=== PATIENT | male | born 1980 | race American Indian/Alaskan Native ===

== ENCOUNTER 2018-01-12 22:26 | Emergency (ER) | payer SELFPAY ==
[2018-01-12 22:37] VITALS: BP 134/77
[2018-01-13] MEDS ORDERED: BACTRIM DS PO ONE (05:10)
[2018-01-13] MEDS ORDERED: MOTRIN PO ONE (05:10)
--- NOTE | 2018-01-13 05:12 | Emergency Department Report ---
- General Chief complaint: Wound/Laceration Stated complaint: RASH ON ABD Time Seen by Provider: 01/13/18 05:09 Source: patient Mode of arrival: Ambulatory Limitations: No Limitations - History of Present Illness Initial comments: 37-year-old -Italian male comes in complaining of wound to his lower abdomen. Patient states that he has noticed it about 2 days ago. He reports that the pain is severe. He reports that his increase pain with palpation and movement getting in and out of his truck at work. Patient noticed that he has a little fever and noticed red and now he's noticed that it has started to drain. She denies any fever or chills no nausea no vomiting. He denies any similar abscesses in the past. -: days(s) (2) - Related Data Previous Rx's Medication Instructions Recorded Last Taken Type Ibuprofen [Motrin 800 MG tab] 800 mg PO Q8HR #30 tablet 01/13/18 Unknown Rx Sulfamethoxazole/Trimethoprim 1 each PO BID #20 tablet 01/13/18 Unknown Rx [Bactrim Ds Tablet] Allergies Allergy/AdvReac Type Severity Reaction Status Date / Time No Known Allergies Allergy Unverified 01/12/18 22:43 Abscess Boil HPI - HPI Chief Complaint: Wound/Laceration Stated Complaint: RASH ON ABD Time Seen by Provider: 01/13/18 05:09 Home Medications: Previous Rx's Medication Instructions Recorded Last Taken Type Ibuprofen [Motrin 800 MG tab] 800 mg PO Q8HR #30 tablet 01/13/18 Unknown Rx Sulfamethoxazole/Trimethoprim 1 each PO BID #20 tablet 01/13/18 Unknown Rx [Bactrim Ds Tablet] Allergies/Adverse Reactions: Allergies Allergy/AdvReac Type Severity Reaction Status Date / Time No Known Allergies Allergy Unverified 01/12/18 22:43 ED Review of Systems ROS: Stated complaint: RASH ON ABD Other details as noted in HPI Skin: other (boil on stomach that is painful) ED Past Medical Hx - Social History Smoking Status: Current Every Day Smoker Substance Use Type: None - Medications Home Medications: Home Medications Medication Instructions Recorded Confirmed Last Taken Type Ibuprofen [Motrin 800 MG tab] 800 mg PO Q8HR #30 tablet 01/13/18 Unknown Rx Sulfamethoxazole/Trimethoprim 1 each PO BID #20 tablet 01/13/18 Unknown Rx [Bactrim Ds Tablet] ED Physical Exam - General Limitations: No Limitations General appearance: alert, in no apparent distress - Eye Eye exam: Present: EOMI - GI/Abdominal GI/Abdominal exam: Present: soft, other (abscess noted 3 cm x 5 cm tenderness with purulent serosanguineous discharge with surrounding erythematous) - Neurological Exam Neurological exam: Present: alert, oriented X3 - Psychiatric Psychiatric exam: Present: normal affect, normal mood ED Course Vital Signs 01/12/18 01/12/18 22:25 22:37 Temperature 99.0 F 99.0 F Pulse Rate 74 73 Respiratory 16 18 Rate Blood Pressure 134/77 134/77 O2 Sat by Pulse 99 Oximetry ED Medical Decision Making - Medical Decision Making Patient has been evaluated by this provider fast track. Ibuprofen 800 mg given for pain management. Warm compresses has been placed on abscess. Abscess has already started to drain. Will discharge patient on antibiotics and pain medication. Discussed patient he may want to wash with Dial soap. Follow-up with his primary care provider if symptoms persist or gets worse. Critical care attestation.: If time is entered above; I have spent that time in minutes in the direct care of this critically ill patient, excluding procedure time. ED Disposition Clinical Impression: Abscess of abdominal wall Disposition: [id number] TO HOME OR SELFCARE Is pt being admited?: No Does the pt Need Aspirin: No Condition: Stable Instructions: Abscess (ED) Additional Instructions: Complete antibiotics as prescribed. Take pain medication as needed. Continue with warm compresses to the site. Follow-up with her primary care provider or [facility] if the symptoms persist or gets worse. Prescriptions: Ibuprofen [Motrin 800 MG tab] 800 mg PO Q8HR #30 tablet Sulfamethoxazole/Trimethoprim [Bactrim Ds Tablet] 1 each PO BID #20 tablet Referrals: PRIMARY CARE, [Primary Care Provider] - 3-5 Days Forms: Work/School Release Form(ED)
== END 2018-01-13 06:38 | disposition home or self-care (01) ==
LOC: ED 22:26
DX: L02.211 Cutaneous abscess of abdominal wall (principal); R50.9 Fever, unspecified; F17.200 Nicotine dependence, unspecified, uncomplicated
CPT/HCPCS: 99282